=== PATIENT | male | born 2005 | race Caucasian/White ===

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

== ENCOUNTER 2023-06-14 05:05 | Emergency (ER) | payer OTHER ==
[~2023-06-14] VITALS: Ht 175.3 cm; Wt 61.7 kg
[2023-06-14 05:12] VITALS: BP 122/70; PULSE 61; RESP 18; TEMP 97.9; O2SAT 100
[2023-06-14] MEDS ORDERED: SULF-59 PO (05:44)
[2023-06-14 05:55] VITALS: BP 122/70; PULSE 61; RESP 18; TEMP 97.9; O2SAT 100
== END 2023-06-14 05:55 | disposition home or self-care (01) ==
LOC: MED 05:05
DX: L02.01 Cutaneous abscess of face (principal)
CPT/HCPCS: 99283

== ENCOUNTER 2023-07-25 11:26 | Emergency (ER) | payer OTHER ==
[~2023-07-25] VITALS: Ht 175.3 cm; Wt 54.4 kg
[~2023-07-25 11:26] MED LIST changes: +SULF-59 PO
[2023-07-25 11:39] VITALS: BP 130/62; PULSE 66; RESP 18; TEMP 98.1; O2SAT 98
[2023-07-25] MEDS ORDERED: CYCL-711 PO (13:17)
[2023-07-25] MEDS ORDERED: METH1ADH21 TP (13:17)
[2023-07-25] MEDS ORDERED: NAPR-1704 PO (13:17)
[2023-07-25 13:29] VITALS: BP 130/62; PULSE 98; RESP 18; TEMP 98.1; O2SAT 99
[2023-07-25 14:09] LABS: APPEARANCE,URINE CLEAR (CLEAR); BILIRUBIN,URINE NEGATIVE (NEGATIVE); BLOOD, URINE NEGATIVE (NEGATIVE); COLOR,URINE YELLOW (YELLOW); LEUKOCYTE ESTERASE ,URINE NEGATIVE (NEGATIVE); NITRITE, URINE NEGATIVE (NEGATIVE); PH,URINE 6.5 (5.0-9.0); PROTEIN,URINE NEGATIVE (NEGATIVE); UGLUCOSE NEGATIVE (NEGATIVE); UROBILINOGEN,URINE 0.2 EU/dL (0.2 - 1)
== END 2023-07-25 13:32 | disposition home or self-care (01) ==
LOC: MED 11:26
DX: M62.830 Muscle spasm of back (principal); Z79.1 Long term (current) use of non-steroidal anti-inflammatories (NSAID); Z79.899 Other long term (current) drug therapy
CPT/HCPCS: 72080; 81003; 99284